=== PATIENT | female | born 1950 | race Caucasian/White ===

== ENCOUNTER → 2017-01-28 | Outpatient (CLI) | payer BC ==
[~2017-01-28] MED LIST: ALLERGY TAB PO; LOSA50TA54 PO; MULT-506 PO; PEPCID AC PO
--- NOTE | 2017-01-28 10:30 | DIAGNOSTIC IMAGING REPORT ---
CHEST 2 VIEWS ROUTINE HISTORY: D50.0 Iron deficiency anemia due to chronic blood lossJ30.9 Raul COMPARISON: None. FINDINGS: The lungs are clear. Cardiac silhouette is normal in size. No pleural effusions. No pneumothorax. IMPRESSION: No acute process. Electronically signed by: Dakota Ayala M.D. 01/28/2017 10:29 AM Dictated Date/Time: 01/28/2017 10:27 AM
[2017-01-28 12:21] LABS: BASO % 0.8 %; BASO ABS # 0.04 K/uL (0-0.2); COMPLETE YES; EOS % 1.6 %; HEMATOCRIT 43.8 % (37-47); IG% 0.2 %; LYMPH % 27.2 %; LYMPH ABS # 1.36 K/uL (1.2-3.4); MEAN CELL VOLUME 83.9 fL (80-100); MEAN CORPUSCULAR HEMOGLOBIN 27.6 pg (25-34); MEAN CORPUSCULAR HGB CONC 32.9 g/dl (32-36); NEUT % 59.2 %; PLATELET COUNT 247 K/uL (130-400); RED BLOOD COUNT 5.22 M/uL (4.2-5.4)
[2017-01-28 12:39] LABS: ALT/SGPT 42 U/L (12-78); BLOOD UREA NITROGEN 14 mg/dl (7-18); BUN/CREATININE RATIO 13.7 (10-20); CARBON DIOXIDE 27 mmol/L (21-32); CHLORIDE 107 mmol/L (98-107); CHOLESTEROL 193 mg/dl (0-200); CREATININE 0.99 mg/dl (0.60-1.20); GLUCOSE 97 mg/dl (70-99); POTASSIUM 4.3 mmol/L (3.5-5.1); SODIUM 142 mmol/L (136-145); TRIGLYCERIDES 115 mg/dl (0-150); VERY LOW DENSITY LIPOPROT CALC 23 mg/dl
[2017-01-28 12:42] LABS: CALCIUM 8.8 mg/dl (8.5-10.1)
[2017-01-28 12:56] LABS: ALB/GLOB RATIO 1.1 (0.9-2); ALKALINE PHOSPHATASE 97 U/L (45-117); AST/SGOT 23 U/L (15-37); CHOLESTEROL/HDL RATIO 4.3; HDL CHOLESTEROL 45 mg/dl; LDL CHOLESTEROL CALCULATED 125 mg/dl; THYROID STIMULATING HORMONE 0.892 uIu/ml (0.300-4.500); TOTAL IRON BINDING CAPACITY 320 mcg/dl (250-450)
== END | disposition home or self-care (01) ==
LOC: C.RAD1850 09:50
PROVIDERS: ATTEND Internal Medicine Pulmonary Disease
DX: E78.5 Hyperlipidemia, unspecified (principal); D50.0 Iron deficiency anemia secondary to blood loss (chronic); I10 Essential (primary) hypertension; J30.9 Allergic rhinitis, unspecified; R10.13 Epigastric pain; R06.00 Dyspnea, unspecified

== ENCOUNTER → 2017-02-06 | Day surgery (SDC) | payer BC ==
[2017-01-29 10:13] VITALS: Ht 167.6 cm; Wt 109.1 kg
[~2017-02-06] VITALS: Ht 167.6 cm; Wt 109.1 kg
[~2017-02-06] MED LIST changes: +LIDOCAINE HCL 2% 2 ML VIAL (20MG/ML) ONE; +PROPOFOL IV EMULSION 10 MG/ML 20 ML VIAL IV ONE; +SODIUM CHLORIDE 0.9% 500ML 500 ML IV ONE
--- NOTE | 2017-02-06 14:57 | Endo History and Physical ---
History & Physical Date of Service: Feb 06, 2017. Chief Complaint: Reflux, family history of esophageal cancer (father) Referring Physician: Solic History of Present Illness 66 yo CF who presents for EGD secondary to GERD and family history of esophageal cancer. Past Surgical History Hx Cardiac Surgery: No Hx Internal Defibrillator: No Hx Pacemaker: No Hx Abdominal Surgery: Yes (C SECTION/TUBAL,GB SURG, L OOPHORECTOMY, EXPL LAPAROTOMY FOR OVARIAN CYST) Hx of Implantable Prosthesis: No Hx Post-Op Nausea and Vomiting: Yes (PONV) Hx Cancer Surgery: No Hx Thoracic Surgery: No Hx Orthopedic: No Hx Urinary Tract Surgery: No Family History Esophogeal CA Social History Smoking Status: Former Smoker Hx Substance Use: No Hx Alcohol Use: No Allergies Coded Allergies: Penicillins (Unverified Allergy, Unknown, HIVES, 02/06/17) Current Medications Reported Home Medications Medications Dose Route/Sig Max Daily Dose Days Date Category [Pepcid Ac] 1 Tab PO PRN 01/29/17 Reported [Allergy Tab] 1 Tab PO QAM 01/29/17 Reported Multivitamin (Multivitamins) Tab 1 Tab PO QAM 01/29/17 Reported Cozaar (Losartan Potassium) 50 Mg Tab 50 Mg PO QPM 01/29/17 Reported Vital Signs Weight (Kilograms): 109.09 Height (Feet): 5 Height (Inches): 6 Date Time Temp Pulse Resp B/P (MAP) Pulse Ox O2 Delivery O2 Flow Rate FiO2 02/06/17 13:44 36.7 86 20 156/87 (110) 96 Room Air Physical Exam General Appearance: WD/WN, no apparent distress Respiratory/Chest: Auscultation: breath sounds normal Cardiovascular: Heart Auscultation: RRR Abdomen: Bowel Sounds: normal Inspection & Palpation: soft, non-distended, no tenderness, guarding & rebound Assessment and Plan Assessment: 66 yo CF who presents for EGD secondary to GERD and family history of esophageal cancer. Plan: Proceed with EGD.
--- NOTE | 2017-02-06 15:14 | Discharge Instructions ---
Endoscopy Patient Instructions Date / Procedure(s) Performed Feb 06, 2017. EGD Allergy Information Coded Allergies: Penicillins (Unverified Allergy, Unknown, HIVES, 02/06/17) Discharge Date / Findings Feb 06, 2017. Gastric antrum biopsies Provider Instructions Activity Restrictions - No exercising or heavy lifting for 24 hours. - Do not drink alcohol the day of the procedure. - Do not drive a car or operate machinery until the day after the procedure. - Do not make any important decisions or sign important papers in 24 hours after the procedure. Following Day: - Return to full activity which may include returning to work/school. Diet Start your diet with liquids and light foods (jello, soup, juice, toast). Then eat your usual diet if not nauseated. Treatment For Common After Affects For mild abdominal pain, bloating, or excessive gas: - Rest - Eat lightly - Lie on right side Follow-Up Information Follow-up with Mindi as scheduled Anesthesia Information What You Should Know You have had a procedure that required some medicine to reduce anxiety and discomfort. This treatment is called moderate sedation. After receiving the treatment, you may be sleepy, but you will be able to breathe on your own. The effects of the treatment may last for several hours. Follow these instructions along with Activity/Diet recommendations noted above: * Do NOT do anything where dizziness or clumsiness would be dangerous. * Rest quietly at home today, then you can be up and about tomorrow. * Have a responsible person stay with you the rest of today. * You may have had an I.V. today. If so, you may take the dressing off later today. Recommendations Call your doctor if: * Trouble breathing * Continuous vomiting for more than 24 hours * Temperature above 101 degrees * Severe abdominal pain or bloating * Pain not relieved by pain medicine ordered * There is increased drainage or redness from any incision * A large amount of rectal bleeding greater than 2-3 tablespoons. (If you had a polyp/s removed or have hemorrhoids, a small amount of blood - from the rectum is to be expected.) * You have any unanswered questions or concerns. IN THE EVENT OF A SERIOUS EMERGENCY, GO TO THE NEAREST EMERGENCY ROOM Your discharge instructions were prepared by provider Troy Ellis. Patient Instructions Signature Page Erica Christian Patient (or Guardian) Signature/Date: I have read and understand the instructions given to me by my caregivers. Caregiver/RN/Doctor Signature/Date: The above-named patient and/or guardian has received patient instructions on this date. + Original Patient Signature Page (only) stays with chart. Please make copy for patient.
--- NOTE | 2017-02-06 15:24 | Anesthesiology Progress Note ---
Anesthesia Post Op Note Date & Time Feb 06, 2017 at 15:24 Vital Signs Pain Intensity: 0 Vital Signs Past 12 Hours Date Time Temp Pulse Resp B/P (MAP) Pulse Ox O2 Delivery O2 Flow Rate FiO2 02/06/17 15:10 80 16 157/96 (116) 95 Room Air 02/06/17 13:44 36.7 86 20 156/87 (110) 96 Room Air Notes Mental Status: alert / awake / arousable, participated in evaluation Pt Amnestic to Procedure: Yes Nausea / Vomiting: adequately controlled Pain: adequately controlled Airway Patency, RR, SpO2: stable & adequate BP & HR: stable & adequate Hydration State: stable & adequate Anesthetic Complications: no major complications apparent
[2017-02-06 15:44] VITALS: BP 117/88; PULSE 78; O2SAT 96
--- NOTE | 2017-02-06 16:04 | GI REPORT ---
Procedure Date: 02/06/2017 2:39 PM Procedure: Upper GI endoscopy Indications: Gastro-esophageal reflux disease Medicines: Monitored Anesthesia Care Complications: No immediate complications. Estimated Blood Loss: Estimated blood loss: none. Procedure: Pre-Anesthesia Assessment: - Prior to the procedure, a History and Physical was performed, and patient medications and allergies were reviewed. The patient's tolerance of previous anesthesia was also reviewed. The risks and benefits of the procedure and the sedation options and risks were discussed with the patient. All questions were answered, and informed consent was obtained. Prior Anticoagulants: The patient has taken no previous anticoagulant or antiplatelet agents. ASA Grade Assessment: II - A patient with mild systemic disease. After reviewing the risks and benefits, the patient was deemed in satisfactory condition to undergo the procedure. After obtaining informed consent, the endoscope was passed under direct vision. Throughout the procedure, the patient's blood pressure, pulse, and oxygen saturations were monitored continuously. The scope was introduced through the mouth, and advanced to the second part of duodenum. The upper GI endoscopy was accomplished without difficulty. The patient tolerated the procedure well. Findings: The esophagus was normal. The entire examined stomach was normal. Biopsies were taken with a cold forceps for Helicobacter pylori testing. The examined duodenum was normal. Impression: - Normal esophagus. - Normal stomach. Biopsied. - Normal examined duodenum. Recommendation: - Resume previous diet. - Continue present medications. - Await pathology results. - Return to GI office as previously scheduled. Troy Ellis DO 02/06/2017 4:04:19 PM This report has been signed electronically. Note Initiated On: 02/06/2017 2:39 PM I attest to the content of the Intraoperative Record and orders documented therein, exceptions below
== END | disposition home or self-care (01) ==
LOC: C.GI 13:13
PROVIDERS: ATTEND Internal Medicine
DX: K21.9 Gastro-esophageal reflux disease without esophagitis (principal); K29.50 Unspecified chronic gastritis without bleeding; Z80.0 Family history of malignant neoplasm of digestive organs; Z87.891 Personal history of nicotine dependence

== ENCOUNTER → 2017-03-22 | Outpatient (CLI) | payer BC ==
[~2017-03-22] MED LIST changes: -LIDOCAINE HCL 2% 2 ML VIAL (20MG/ML) ONE; -PROPOFOL IV EMULSION 10 MG/ML 20 ML VIAL IV ONE; -SODIUM CHLORIDE 0.9% 500ML 500 ML IV ONE
--- NOTE | 2017-03-25 14:33 | MAMMOGRAPHY REPORT ---
BILATERAL DIGITAL SCREENING MAMMOGRAM WITH CAD: 03/22/2017 CLINICAL HISTORY: Routine screening. TECHNIQUE: Current study was also evaluated with a Computer Aided Detection (CAD) system. Bilateral CC and MLO views were obtained. COMPARISON: Comparison is made to exams dated: 03/20/2016 mammogram, 04/13/2015 mammogram, 03/15/2015 mamm ogram, 03/05/2014 mammogram, 02/25/2013 mammogram, and 02/19/2012 mammogram - [facility] er. BREAST COMPOSITION: There are scattered areas of fibroglandular density in both breasts. FINDINGS: No suspicious masses, calcifications, or areas of architectural distortion are noted in ei ther breast. There has been no significant interval change compared to prior exams. A biopsy marker clip is again noted in the right breast. Small bilateral benign-appearing masses are not significant ly changed and likely represent cysts. Benign-appearing left breast calcifications are stable. IMPRESSION: ACR BI-RADS CATEGORY 2: BENIGN There is no mammographic evidence of malignancy. A 1 year screening mammogram is recommended. The pa tient will receive written notification of the results. Approximately 10% of breast cancers are not detected with mammography. A negative mammographic report should not delay biopsy if a clinically suggestive mass is present. Julia Bateman M.D. ah/:03/22/2017 16:43:49 Computer Operations Manager: Jennifer ROBERTS)(M), [facility] letter sent: Normal 1/2 BI-RADS Code: ACR BI-RADS Category 2: Benign
== END | disposition home or self-care (01) ==
LOC: C.MAMM 07:13
PROVIDERS: ATTEND Internal Medicine Pulmonary Disease
DX: Z12.31 Encounter for screening mammogram for malignant neoplasm of breast (principal)

== ENCOUNTER → 2017-11-12 | Outpatient (CLI) | payer BC | END | disposition home or self-care (01) | LOC: C.RDSM 10:00 | PROVIDERS: ATTEND Orthopaedic Surgery | DX: M79.605 Pain in left leg (principal); M25.562 Pain in left knee ==

== ENCOUNTER → 2018-03-24 | Outpatient (CLI) | payer BC ==
--- NOTE | 2018-03-25 14:58 | MAMMOGRAPHY REPORT ---
BILATERAL DIGITAL SCREENING MAMMOGRAM TOMOSYNTHESIS WITH CAD: 03/24/2018 CLINICAL HISTORY: Routine screening. Patient has no complaints. TECHNIQUE: The study was acquired using full field digital technology and interpreted from soft copy. Breast tomosynthesis in addition to standard 2D mammography was performed. Current study was also ev aluated with a Computer Aided Detection (CAD) system. COMPARISON: Comparison is made to exams dated: 03/22/2017 mammogram, 03/20/2016 mammogram, 04/22/2015 ma mmogram, 04/13/2015 mammogram, 03/15/2015 mammogram, and 03/05/2014 mammogram - [facility] er. BREAST COMPOSITION: There are scattered areas of fibroglandular density in both breasts. FINDINGS: There are multiple bilateral breast masses, which do not all demonstrate circumscribed mara ins. In particular, there is an 8 mm mass in the right upper outer middle to posterior breast, a lob ulated 11 mm mass in the 6:00 to 7:00 left breast, 14 mm and 16 mm adjacent masses in the upper outer posterior left breast, for which additional targeted ultrasound and possible additional mammographic views are recommended. There is a stable metallic biopsy marker clip in the 12:00 right breast. No developing asymmetry, arc hitectural distortion or cluster of new microcalcifications is seen. IMPRESSION: ACR BI-RADS CATEGORY 0: INCOMPLETE EVALUATION: NEED ADDITIONAL IMAGING EVALUATION Bilateral non-circumscribed breast masses could represent cysts although additional imaging evaluatio n is needed. The patient will be called to schedule an appointment. Some breast cancers are not detected with mammography. A negative mammographic report should not ketan y biopsy if a clinically suggestive mass is present. Beatriz Cox M.D. ay/:03/24/2018 16:42:54 Business Information Manager: Chanell Lawson RT(R)(M), [facility] letter sent: Addl Imaging 0 BI-RADS Code: ACR BI-RADS Category 0: Incomplete Evaluation: Need Additional Imaging Evaluation
== END | disposition home or self-care (01) ==
LOC: C.MAMM 07:19
PROVIDERS: ATTEND Internal Medicine Pulmonary Disease
DX: Z12.31 Encounter for screening mammogram for malignant neoplasm of breast (principal); N63.10 Unspecified lump in the right breast, unspecified quadrant; N63.20 Unspecified lump in the left breast, unspecified quadrant

== ENCOUNTER → 2018-04-02 | Outpatient (CLI) | payer BC ==
--- NOTE | 2018-04-02 13:39 | MAMMOGRAPHY REPORT ---
ULTRASOUND OF BOTH BREASTS: 04/02/2018 CLINICAL HISTORY: Callback from screening mammogram for bilateral breast masses. COMPARISON: Comparison is made to exams dated: 03/24/2018 mammogram, 03/20/2016 mammogram, 04/22/2015 ma mmogram, 04/13/2015 mammogram, 03/15/2015 mammogram, and 02/19/2012 mammogram - [facility]. Findings: Real-time, high-resolution targeted ultrasound was performed of bilateral breasts in the re gion of the masses seen on the recent screening mammogram. In the left breast at 6:00, approximately 3 cm from the nipple, there is an oval anechoic circumscribed mass which measures 7 x 7 mm. This cor responds with 1 of the mammographic masses and is consistent with a benign simple cyst. Adjacent to this is a circumscribed round anechoic mass with some internal echogenic material which likely repres ents debris, measuring 4 x 4 mm. This is probably benign and likely represents a complicated cyst. In the left 2:00 breast, 5 cm from the nipple, there is an oval anechoic circumscribed mass which dank sures 6 x 6 mm. Adjacent to this in the left 2:00 breast, 4 cm from the nipple, is another oval anec hoic circumscribed mass which measures 11 by 6 x 9 mm. These 2 masses correspond with the mammograph ic masses and are consistent with benign simple cysts. In the right 9:00 breast, approximately 5 cm from the nipple, there is a round circumscribed mass wit h posterior acoustic enhancement which measures 5 x 5 x 6 mm. The mass is partially anechoic and par tially hypoechoic and is probably benign and likely represents a complicated cyst. This corresponds with the mammographic mass. Adjacent to this is a small anechoic cyst which measures 2 x 3 x 2 mm. N o suspicious solid masses were evident. IMPRESSION: ACR-BI-RADS CATEGORY 3: PROBABLY BENIGN 1. Circumscribed partially anechoic and partially hypoechoic 6 mm mass in the right 9:00 breast and 4 mm mass in the left 6:00 breast are probably benign and likely represent complicated cysts. Recomme nd follow-up bilateral diagnostic tomosynthesis mammograms and possible targeted ultrasound in 6 yolanda hs to confirm stability. 2. Other circumscribed anechoic masses seen within the right 9:00, left 6:00, and left 2:00 breast, which correspond with mammographic masses and are consistent with benign cysts. The patient was verbally notified of the results. Julia Bateman M.D. ah/:04/02/2018 08:08:51 Statistics Manager: RT Joselin(Isaías)(Fatimah), [facility] letter sent: Follow Up Recommended 3 BI-RADS Code: ACR-BI-RADS Category 3: Probably Benign
== END | disposition home or self-care (01) ==
LOC: C.MAMM 07:42
PROVIDERS: ATTEND Internal Medicine Pulmonary Disease
DX: N63.10 Unspecified lump in the right breast, unspecified quadrant (principal); N63.20 Unspecified lump in the left breast, unspecified quadrant